=== PATIENT | male | born 1985 | race African-American/Black ===

== ENCOUNTER 2016-12-02 11:34 | Emergency (ER) | payer BC ==
[~2016-12-02] VITALS: Ht 193 cm; Wt 146.1 kg
--- NOTE | ~2016-12-02 | CT4 ---
[facility] A Service of [facility] & [facility] RADIOLOGY TEXT RESULTS PATIENT: MINH JEFFERS JR LOCATION: [facility] : 81 UNIT #: [id number] AGE: [address]: Silvia Temple SEX: M ORDER DR: [id number] [facility] [address] [place], [place] [address] [id number] MR#: [id number] Acc #: [id number] NAME: MINH EJFFERS JR : 1985 SEX: M STUDY DATE/TIME: 12/02/2016 14:48 UNIT: CFT[facility] ROOM: STUDY DESCRIPTION: CT Abd and Pelv Wo Cont Attending Physician: Silvia Temple Pa-C Ordering Physician: Silvia Temple Pa-C Primary Care Physician: Doni Horner M.D. MEDICAL IMAGING REPORT This report is preliminary unless electronic signature is present EXAM CT of the pelvis without contrast. INDICATIONS Left flank pain for [address] images were obtained from the dome of the diaphragm to the symphysis pubis. No oral or intravenous contrast was administered. This CT exam was performed with one or more of the following radiation dose reduction techniques: automatic exposure control, adjustment of mA and/or kV according to patient size, and iterative reconstruction. FINDINGS Images through the lung bases demonstrate some left basilar atelectasis. There is a trace left pleural effusion. Stomach and proximal small bowel are within normal limits as are the adrenal glands, pancreas, gallbladder and kidneys. No renal stones are identified and there is no hydroureteronephrosis. No distal ureteral or bladder stones are seen. Liver is enlarged measuring up to 19 cm in craniocaudal dimensions. Patient's spleen is also enlarged measuring up to 14.8 cm in AP dimensions. No focal hepatic lesions are seen and there is no intra or extrahepatic biliary dilatation. No adenopathy is seen within the abdomen. There is no evidence of mechanical bowel obstruction. Patient's appendix is visualized and is within normal limits. Urinary bladder and prostate gland appear normal. Patient does have some sparse colonic diverticula, but I do not see any convincing evidence of diverticulitis. No free fluid or adenopathy is STS. [facility] A Service of [facility] & [facility] RADIOLOGY TEXT RESULTS PATIENT: MINH JEFFERS JR [facility] [place] [id number] [birth year] UNIT #: [id number] AGE: [address]: Silvia Temple SEX: M ORDER DR: seen within the pelvis. There is a tiny fat-containing umbilical hernia. Review of bony windows does not demonstrate any aggressive osseous abnormalities. IMPRESSION 1. Hepatosplenomegaly of uncertain clinical significance. 2. Trace left pleural effusion and left basilar consolidation. 3. The appendix is visualized and is within normal limits. 4. Sparse colonic diverticulosis without any convincing evidence of diverticulitis. Dictated by... Gabriella Wells M.D. THIS IS AN ELECTRONICALLY VERIFIED REPORT Gabriella Wells M.D. at 12/04/2016 8:33 AM GABE/jacob TD: 12/03/2016 09:52 JOB #: [id number] MEDICAL IMAGING REPORT Page 1 of 1 COPY
[~2016-12-02 11:34] MED LIST: ALBUTEROL17 GM INH; NO MEDICATIONS; PHENERGAN W/CO120 ML PO; PREDNISONE PO; ZITHROMAX1 G/PKT PO
[2016-12-02 12:54] LABS: URINE SOURCE CLEAN CATCH
[2016-12-02 13:14] LABS: URINE APPEARANCE CLEAR; URINE BILIRUBIN NEG (NEG); URINE BLOOD NEG (NEG); URINE COLOR YELLOW; URINE GLUCOSE 250 MG/DL (NEG); URINE KETONE NEG (NEG); URINE LEUKOCYTE ESTERASE NEG (NEG); URINE NITRATE NEG (NEG); URINE PROTEIN NEG (NEG)
[2016-12-02 13:28] LABS: CULTURE INDICATED? NO
== END 2016-12-02 16:05 | disposition home or self-care (01) ==
LOC: CFTX 11:34 → CED 11:34 → CFTX 13:05
PROVIDERS: Physician Assistant Medical
DX: J18.1 Lobar pneumonia, unspecified organism (principal)
CPT/HCPCS: 74176; 81003; 82947; 99284

== ENCOUNTER → 2016-12-06 | Outpatient (CLI) | payer BC ==
--- NOTE | ~2016-12-06 | CR63 ---
[facility] A Service of [facility] RADIOLOGY TEXT RESULTS PATIENT: MINH JEFFERS JR [id number] [birth year] UNIT #: [id number] AGE: [address]: Doni Horner MD SEX: M ORDER DR: [id number] [facility] [address] [place] [address] [place], [place] [address] [id number] O MR#: [id number] Acc #: [id number] NAME: MINH JEFFERS JR : 1985 SEX: M STUDY DATE/TIME: 12/06/2016 14:50 UNIT: [facility] ROOM: STUDY DESCRIPTION: CR Chest 2 View Attending Physician: Doni Horner M.D. Referring Physician: Doni Horner M.D. Ordering Physician: Doni Horner M.D. Primary Care Physician: Doni Horner M.D. MEDICAL IMAGING REPORT This report is preliminary unless electronic signature is present EXAM Two views of the chest, dated 12/06/2016. COMPARISON Chest, two views, dated 05/16/2014. HISTORY Shortness of air, mild congestion, left-sided pneumonia for four days. FINDINGS Two views of the chest were obtained. PA and lateral examination of the chest upright shows a good expansion of the parenchyma with a normal distribution of the pulmonary vascularity. There is no indication of congestion, effusion, infiltrate, tumor, or nodular density. The pleural reflections and diaphragmatic contours are normal. The cardiac silhouette and mediastinal anatomy is within normal limits. IMPRESSION Normal 2-views chest. Dictated by... Jeet Echevarria M.D. THIS IS AN ELECTRONICALLY VERIFIED REPORT Jeet Echevarria M.D. at 12/10/2016 9:57 PM CPR/jt TD: 12/07/2016 01:06 JOB #: [id number] [facility] A Service of [facility] RADIOLOGY TEXT RESULTS PATIENT: MINH JEFFERS JR LOCATION: [facility] #: [id number] : [birth year] UNIT #: [id number] AGE: [address]: Doni Horner MD SEX: M ORDER DR: MEDICAL IMAGING REPORT Page 1 of 1 COPY
== END | disposition home or self-care (01) ==
LOC: CRAD 14:38
DX: J18.9 Pneumonia, unspecified organism (principal)
CPT/HCPCS: 71020